=== PATIENT | female | born 1995 | race Caucasian/White ===

== ENCOUNTER 2020-04-29 12:14 | Emergency (ER) | payer MEDICAID ==
[2020-04-29] MEDS ORDERED: Haloperidol Lactate 5 MG/ML SDV IM ONE ×2 (12:33→12:54)
[2020-04-29] MEDS ORDERED: Sodium Chloride 0.9% 10 ML Syringe FLUSH PRN (12:34)
[2020-04-29] MEDS ORDERED: Sodium Chloride 0.9% 2.5 ML Syringe FLUSH PRN (12:34)
[2020-04-29] MEDS ORDERED: Haloperidol Lactate 5 MG/ML SDV ONE ×2 (12:34→12:55)
--- NOTE | 2020-04-29 12:58 | EDM.PDOC ---
ED HPI GENERAL MEDICAL PROBLEM - General Chief Complaint: Abdominal Pain Stated Complaint: ABDOMINAL PAIN;SEIZURES Time Seen by Provider: 04/29/20 12:18 Source of Information: Reports: Patient History Limitations: Reports: Physical Impairment, Uncooperative - History of Present Illness INITIAL COMMENTS - FREE TEXT/NARRATIVE: 24-year-old female with a past medical history of gastroparesis and cannabinoid hyperemesis presenting with abdominal pain and vomiting. Brought to triage with her significant other. The patient is extremely difficult to interview as she is behaving in a rather hysterical fashion, screaming, crying, and rocking in the bed. I was able to determine that she has had a 1 day history of generalized abdominal pain along with innumerable episodes of nonbloody emesis. She denies any preceding fever or other recent illness. Denies any hematemesis or bloody bowel movements. I was not able to obtain much more of a history from the patient. I did speak with the patient's spouse by phone and he conveyed the same history. He states that she has "pain related seizures". And he is concerned that she has had similar episodes today. As far as he knows that she does not carry a legitimate diagnosis of a seizure disorder or epilepsy. He does report that she has a history of cannabinoid hyperemesis. Abdomen Pain Score (Numeric/FACES): 10 - Related Data Allergies Allergy/AdvReac Type Severity Reaction Status Date / Time No Known Allergies Allergy Verified 04/29/20 12:19 Home Meds: Home Meds Gabapentin [Neurontin] 900 mg PO DAILY 04/29/20 [History] Past Medical History Gastrointestinal History: Reports: Other (See Below) Other Gastrointestinal History: gastroparesis, Cannabinoid hyperemesis syndrome Genitourinary History: Reports: Other (See Below) Other Genitourinary History: ovarian cyst removal Neurological History: Reports: Seizure Other Neuro History: abdominal pain induced seizures Social & Family History - Family History Family Medical History: Noncontributory - Caffeine Use Caffeine Use: Reports: None - Recreational Drug Use Recreational Drug Use: No ED ROS GENERAL - Review of Systems Review Of Systems: Unable To Obtain Reason Not Obtained: Limited due to patient being uncooperative and extremely anxious. Constitutional: Denies: Fever Cardiovascular: Denies: Chest Pain GI/Abdominal: Reports: Abdominal Pain, Nausea, Vomiting. Denies: Black Stool, Bloody Stool, Diarrhea, Hematochezia, Melena : Denies: Flank Pain Musculoskeletal: Denies: Back Pain ED EXAM, GI/ABD - Physical Exam Exam: See Below Text/Narrative:: Vital signs reviewed. Nursing notes reviewed. Constitutional: Awake, extremely anxious and agitated, thin appearing woman Head: Normocephalic, atraumatic. Eyes: EOMI, conjunctiva normal, no discharge, no scleral icterus. Ears, Nose, Throat: External ears and nose normal, dry oral mucosa. Cardiovascular: Tachycardic, 2+ radial pulse, capillary refill less than 2 seconds. Pulmonary: Tachypneic normal work of breathing, no accessory muscle use. Abdomen/GI: Soft, nontender, nondistended, no guarding or rigidity, no masses. Musculoskeletal: No deformities. Integumentary: Appropriate color for ethnicity, warm, dry, no pallor or jaundice, no rash. Neurologic: Alert, answering some questions appropriately, no facial droop, moving all extremities well. Rocking back and forth on the bed. Psychiatric: Screening, extremely anxious, agitated. Limited in ability to follow commands and redirect. Poor insight. Impulsive judgment. EKG INTERPRETATION EKG Interpretation Comments: 12-Lead ECG Interpretation Acquired: 12:36 PM Rhythm: Sinus rhythm Rate: 83 bpm Temple: Normal Intervals: Severe QT prolongation Ectopy: None Ischemic Changes: None apparent RV Strain: No obvious RV strain pattern. ST Segments/T-Waves: No notable changes Interpretation: Severe QT prolongation Course - Vital Signs Text/Narrative:: Differential diagnosis includes but is not limited to: Bowel obstruction, bowel perforation, pancreatitis, gastritis, AAA, UTI, pyelonephritis, intra-abdominal infection, mesenteric ischemia, electrolyte disturbance, arrhythmia, seizure, psychosis, psychiatric decompensation, drug or alcohol use, intracranial hemorrhage, seizure, stroke, etc. Upon arrival to the emergency department the patient was extremely agitated and hard to direct. She was screaming loudly and flailing around in the chair. It was very difficult to interview her. IV access was established. Patient was given 2 doses of haloperidol for extreme agitation. After this, we obtained a twelve-lead EKG which showed severe QT prolongation. It would have been impossible to obtain EKG prior to receiving haloperidol because the patient was too restless and agitated and would not be still. There was no prior ECG available for comparison. After noting this finding, the patient required additional sedation so we administered some doses of lorazepam. Labs were sent off. I contacted the patient's significant other to obtain more of a history as he was the one that dropped her off in the emergency department. He states the patient was having severe abdominal pain for hours before coming to the ED. Reports multiple episodes of emesis. He reports that the patient did make statements about committing suicide. He states that the patient discussed walking into traffic to be hit by a car and also discussed stabbing herself with a knife due to severe pain. At this point the patient decided the patient's boyfriend decided that she needed to come to the emergency department. The patient then attempted to stand up on the bed, attempted to get out of bed, and removed her monitoring equipment. Attempted to remove her peripheral IV. She was not redirectable, unable to participate in a rational conversation and could not comprehend her current situation and status. She is unable to make decisions for herself so a legal hold was signed. We obtained CT imaging of the head and abdomen/pelvis, which showed no acute findings. Labs show an elevated lactate, hypokalemia, mild renal insufficiency. Troponin is negative. LFTs are normal. is negative. Urinalysis is bland. Urine drug screen is negative and ethyl alcohol is negative. IV fluids were administered. Given IV magnesium sulfate and IV potassium. We will plan to transfer the patient to [facility] in [place] because we do not have psychiatry available at our hospital. I spoke with Dr. Colon in the emergency department who agrees to accept the transfer. Last Recorded V/S: Last Vital Signs Temp 35.7 C L 04/29/20 12:16 Pulse 89 04/29/20 16:50 Resp 16 04/29/20 16:50 BP 129/80 04/29/20 16:50 Pulse Ox 100 04/29/20 16:50 - Orders/Labs/Meds Orders: Active Orders 24 hr Category Date Time Status Cardiac Monitoring [RC] . DIRECTED Care 04/29/20 12:34 Active EKG 12 Lead [EKG Documentation Completion] [RC] ROUTINE Care 04/29/20 13:12 Active Initiate/Renew Violent-Self Destructive Restraints >/= Care 04/29/20 13:25 Ordered 19yo Q4H Insert Ayala Catheter [Insert Urinary Catheter] [OM.PC] Care 04/29/20 15:00 Ordered Q24H Nrsg Assess: Viol-S.Dest Rest [RC] Q15M Care 04/29/20 13:41 Active Pulse Oximetry [RC] ASDIRECTED Care 04/29/20 12:34 Active Urinary Catheter Assessment [RC] ASDIRECTED Care 04/29/20 16:00 Active Saline Lock Insert [OM.PC] Stat Oth 04/29/20 12:34 Ordered Labs: Laboratory Tests 04/29/20 04/29/20 04/29/20 Range/Units 12:26 12:26 12:26 WBC 8.80 (4.0-11.0) K/uL RBC 5.20 (4.30-5.90) M/uL Hgb 16.0 (12.0-16.0) g/dL Hct 46.2 H (36.0-46.0) % MCV 88.8 (80.0-98.0) fL MCH 30.8 (27.0-32.0) pg MCHC 34.6 (31.0-37.0) g/dL RDW Std Deviation 39.8 (28.0-62.0) fl RDW Coeff of Tye 12 (11.0-15.0) % Plt Count 321 (150-400) K/uL MPV 10.50 (7.40-12.00) fL Neut % (Auto) 61.0 (48.0-80.0) % Lymph % (Auto) 31.0 (16.0-40.0) % [place] % (Auto) 7.0 (0.0-15.0) % Eos % (Auto) 0.5 (0.0-7.0) % Baso % (Auto) 0.5 (0.0-1.5) % Neut # (Auto) 5.4 (1.4-5.7) K/uL Lymph # (Auto) 2.7 H (0.6-2.4) K/uL [place] # (Auto) 0.6 (0.0-0.8) K/uL Eos # (Auto) 0.0 (0.0-0.7) K/uL Baso # (Auto) 0.0 (0.0-0.1) K/uL Nucleated RBC % 0.0 /100WBC Nucleated RBCs # 0 K/uL Lactate (0.20-2.00) mmol/L Sodium 145 (136-145) mmol/L Potassium 3.1 L (3.5-5.1) mmol/L Chloride 106 (98-107) mmol/L Carbon Dioxide 23.9 (21.0-32.0) mmol/L BUN 14 (7.0-18.0) mg/dL Creatinine 1.1 H (0.6-1.0) mg/dL Est Cr Clr Drug Dosing 68.35 mL/min Estimated GFR (MDRD) > 60.0 ml/min Glucose 148 H (74-106) mg/dL Calcium 9.4 (8.5-10.1) mg/dL Total Bilirubin 0.7 (0.2-1.0) mg/dL AST 21 (15-37) IU/L ALT 16 (14-63) IU/L Alkaline Phosphatase 56 (46-116) U/L Troponin I < 0.050 (0.000-0.056) ng/mL Total Protein 8.0 (6.4-8.2) g/dL Albumin 4.6 (3.4-5.0) g/dL Globulin 3.4 (2.6-4.0) g/dL Albumin/Globulin Ratio 1.4 (0.9-1.6) Lipase 52 L (73-393) U/L HCG, Qual NEGATIVE (NEG) Urine Color Urine Appearance Urine pH (5.0-8.0) Ur Specific [place] (1.001-1.035) Urine Protein (NEGATIVE) mg/dL Urine Glucose (UA) (NEGATIVE) mg/dL Urine Ketones (NEGATIVE) mg/dL Urine Occult Blood (NEGATIVE) Urine Nitrite (NEGATIVE) Urine Bilirubin (NEGATIVE) Urine Urobilinogen (<2.0) EU/dL Ur Leukocyte Esterase (NEGATIVE) Urine Opiates Screen (NEGATIVE) Ur Oxycodone Screen (NEGATIVE) Urine Methadone Screen (NEGATIVE) Ur Barbiturates Screen (NEGATIVE) Ur Phencyclidine Scrn (NEGATIVE) Ur Amphetamine Screen (NEGATIVE) U Methamphetamines Scrn (NEGATIVE) U Benzodiazepines Scrn (NEGATIVE) U Cocaine Metab Screen (NEGATIVE) U Marijuana (THC) Screen (NEGATIVE) Ethyl Alcohol mg/dL 04/29/20 04/29/20 04/29/20 Range/Units 12:26 12:50 13:46 WBC (4.0-11.0) K/uL RBC (4.30-5.90) M/uL Hgb (12.0-16.0) g/dL Hct (36.0-46.0) % MCV (80.0-98.0) fL MCH (27.0-32.0) pg MCHC (31.0-37.0) g/dL RDW Std Deviation (28.0-62.0) fl RDW Coeff of Tye (11.0-15.0) % Plt Count (150-400) K/uL MPV (7.40-12.00) fL Neut % (Auto) (48.0-80.0) % Lymph % (Auto) (16.0-40.0) % [place] % (Auto) (0.0-15.0) % Eos % (Auto) (0.0-7.0) % Baso % (Auto) (0.0-1.5) % Neut # (Auto) (1.4-5.7) K/uL Lymph # (Auto) (0.6-2.4) K/uL [place] # (Auto) (0.0-0.8) K/uL Eos # (Auto) (0.0-0.7) K/uL Baso # (Auto) (0.0-0.1) K/uL Nucleated RBC % /100WBC Nucleated RBCs # K/uL Lactate 3.0 H* (0.20-2.00) mmol/L Sodium (136-145) mmol/L Potassium (3.5-5.1) mmol/L Chloride (98-107) mmol/L Carbon Dioxide (21.0-32.0) mmol/L BUN (7.0-18.0) mg/dL Creatinine (0.6-1.0) mg/dL Est Cr Clr Drug Dosing mL/min Estimated GFR (MDRD) ml/min Glucose (74-106) mg/dL Calcium (8.5-10.1) mg/dL Total Bilirubin (0.2-1.0) mg/dL AST (15-37) IU/L ALT (14-63) IU/L Alkaline Phosphatase (46-116) U/L Troponin I (0.000-0.056) ng/mL Total Protein (6.4-8.2) g/dL Albumin (3.4-5.0) g/dL Globulin (2.6-4.0) g/dL Albumin/Globulin Ratio (0.9-1.6) Lipase (73-393) U/L HCG, Qual (NEG) Urine Color Urine Appearance Urine pH (5.0-8.0) Ur Specific [place] (1.001-1.035) Urine Protein (NEGATIVE) mg/dL Urine Glucose (UA) (NEGATIVE) mg/dL Urine Ketones (NEGATIVE) mg/dL Urine Occult Blood (NEGATIVE) Urine Nitrite (NEGATIVE) Urine Bilirubin (NEGATIVE) Urine Urobilinogen (<2.0) EU/dL Ur Leukocyte Esterase (NEGATIVE) Urine Opiates Screen NEGATIVE (NEGATIVE) Ur Oxycodone Screen NEGATIVE (NEGATIVE) Urine Methadone Screen NEGATIVE (NEGATIVE) Ur Barbiturates Screen NEGATIVE (NEGATIVE) Ur Phencyclidine Scrn NEGATIVE (NEGATIVE) Ur Amphetamine Screen NEGATIVE (NEGATIVE) U Methamphetamines Scrn NEGATIVE (NEGATIVE) U Benzodiazepines Scrn NEGATIVE (NEGATIVE) U Cocaine Metab Screen NEGATIVE (NEGATIVE) U Marijuana (THC) Screen NEGATIVE (NEGATIVE) Ethyl Alcohol <3 mg/dL 04/29/20 Range/Units 15:25 WBC (4.0-11.0) K/uL RBC (4.30-5.90) M/uL Hgb (12.0-16.0) g/dL Hct (36.0-46.0) % MCV (80.0-98.0) fL MCH (27.0-32.0) pg MCHC (31.0-37.0) g/dL RDW Std Deviation (28.0-62.0) fl RDW Coeff of Tye (11.0-15.0) % Plt Count (150-400) K/uL MPV (7.40-12.00) fL Neut % (Auto) (48.0-80.0) % Lymph % (Auto) (16.0-40.0) % [place] % (Auto) (0.0-15.0) % Eos % (Auto) (0.0-7.0) % Baso % (Auto) (0.0-1.5) % Neut # (Auto) (1.4-5.7) K/uL Lymph # (Auto) (0.6-2.4) K/uL [place] # (Auto) (0.0-0.8) K/uL Eos # (Auto) (0.0-0.7) K/uL Baso # (Auto) (0.0-0.1) K/uL Nucleated RBC % /100WBC Nucleated RBCs # K/uL Lactate (0.20-2.00) mmol/L Sodium (136-145) mmol/L Potassium (3.5-5.1) mmol/L Chloride (98-107) mmol/L Carbon Dioxide (21.0-32.0) mmol/L BUN (7.0-18.0) mg/dL Creatinine (0.6-1.0) mg/dL Est Cr Clr Drug Dosing mL/min Estimated GFR (MDRD) ml/min Glucose (74-106) mg/dL Calcium (8.5-10.1) mg/dL Total Bilirubin (0.2-1.0) mg/dL AST (15-37) IU/L ALT (14-63) IU/L Alkaline Phosphatase (46-116) U/L Troponin I (0.000-0.056) ng/mL Total Protein (6.4-8.2) g/dL Albumin (3.4-5.0) g/dL Globulin (2.6-4.0) g/dL Albumin/Globulin Ratio (0.9-1.6) Lipase (73-393) U/L HCG, Qual (NEG) Urine Color YELLOW Urine Appearance CLEAR Urine pH 7.0 (5.0-8.0) Ur Specific [place] 1.020 (1.001-1.035) Urine Protein NEGATIVE (NEGATIVE) mg/dL Urine Glucose (UA) NEGATIVE (NEGATIVE) mg/dL Urine Ketones NEGATIVE (NEGATIVE) mg/dL Urine Occult Blood NEGATIVE (NEGATIVE) Urine Nitrite NEGATIVE (NEGATIVE) Urine Bilirubin NEGATIVE (NEGATIVE) Urine Urobilinogen 0.2 (<2.0) EU/dL Ur Leukocyte Esterase NEGATIVE (NEGATIVE) Urine Opiates Screen (NEGATIVE) Ur Oxycodone Screen (NEGATIVE) Urine Methadone Screen (NEGATIVE) Ur Barbiturates Screen (NEGATIVE) Ur Phencyclidine Scrn (NEGATIVE) Ur Amphetamine Screen (NEGATIVE) U Methamphetamines Scrn (NEGATIVE) U Benzodiazepines Scrn (NEGATIVE) U Cocaine Metab Screen (NEGATIVE) U Marijuana (THC) Screen (NEGATIVE) Ethyl Alcohol mg/dL Meds: Medications Discontinued Medications Generic Name Dose Route Start Last Admin Trade Name Che PRN Reason Stop Dose Admin Haloperidol Lactate 5 mg 04/29/20 12:33 04/29/20 12:38 Haldol IM 04/29/20 12:34 5 mg ONETIME ONE Administration Haloperidol Lactate Confirm 04/29/20 12:34 04/29/20 12:38 Haldol Administered 04/29/20 12:35 Not Given Dose 5 mg .ROUTE .STK-MED ONE Haloperidol Lactate 10 mg 04/29/20 12:54 04/29/20 13:03 Haldol IM 04/29/20 12:55 10 mg ONETIME ONE Administration Haloperidol Lactate Confirm 04/29/20 12:55 04/29/20 13:16 Haldol Administered 04/29/20 12:56 Not Given Dose 5 mg .ROUTE .STK-MED ONE Magnesium Sulfate 2 gm/ Premix 50 mls @ 50 mls/hr 04/29/20 13:03 04/29/20 13:16 IV 04/29/20 14:02 50 mls/hr ONETIME ONE Administration Lactated Ringer's 1,000 mls @ 999 mls/hr 04/29/20 13:17 04/29/20 13:18 Ringers, Lactated IV 04/29/20 14:17 999 mls/hr .BOLUS ONE Administration Potassium Chloride 20 meq/ 50 mls @ 25 mls/hr 04/29/20 13:39 04/29/20 14:25 Premix IV 04/29/20 15:38 25 mls/hr ONETIME ONE Administration Iopamidol 100 ml 04/29/20 15:15 04/29/20 15:16 Isovue Multipack-370 (76%) IVPUSH 04/29/20 15:16 100 ml ONETIME STA Administration Lorazepam 2 mg 04/29/20 13:10 04/29/20 13:16 Ativan IVPUSH 04/29/20 13:11 2 mg ONETIME ONE Administration Lorazepam Confirm 04/29/20 13:54 04/29/20 14:22 Ativan Administered 04/29/20 13:55 2 mg Dose Administration 2 mg .ROUTE .STK-MED ONE Lorazepam Confirm 04/29/20 14:02 04/29/20 14:22 Ativan Administered 04/29/20 14:03 4 mg Dose Administration 4 mg .ROUTE .STK-MED ONE Sodium Chloride 10 ml 04/29/20 12:34 04/29/20 13:16 Saline Flush FLUSH 10 ml ASDIRECTED PRN Administration Keep Vein Open Sodium Chloride 2.5 ml 04/29/20 12:34 04/29/20 13:16 Saline Flush FLUSH 2.5 ml ASDIRECTED PRN Administration Keep Vein Open Departure - Departure Time of Disposition: 15:30 Disposition: DC/Tfer to Acute Hospital 02 Condition: Good Clinical Impression: Prolonged QT interval - Discharge Information Referrals: PCP,None [Ordering Only Provider] - Forms: ED Department Discharge Sepsis Event Note (ED) - Evaluation Sepsis Screening Result: No Definite Risk - Focused Exam Vital Signs: Vital Signs Temp Pulse Resp BP Pulse Ox 04/29/20 16:50 89 16 129/80 100 04/29/20 16:35 114 H 18 117/59 L 100 04/29/20 16:20 99 17 134/70 99 04/29/20 16:05 98 16 124/69 99 04/29/20 15:50 108 H 16 127/69 98 04/29/20 15:35 99 16 132/90 99 04/29/20 15:20 108 H 17 128/84 99 04/29/20 15:05 111 H 20 129/84 97 04/29/20 14:50 120 H 19 107/57 L 100 04/29/20 14:35 119 H 20 126/70 99 04/29/20 14:20 101 H 21 H 132/89 99 04/29/20 14:05 101 H 20 126/71 99 04/29/20 13:50 110 H 20 116/96 H 98 04/29/20 13:45 95 22 H 133/89 95 04/29/20 13:35 142 H 22 H 132/92 H 98 04/29/20 13:32 83 17 132/88 100 04/29/20 13:20 126 H 04/29/20 13:00 83 04/29/20 12:46 123 H 18 132/92 H 98 04/29/20 12:33 113 H 17 116/95 H 98 04/29/20 12:16 35.7 C L 107 H 20 131/91 H 98 - My Orders Last 24 Hours: My Active Orders 04/29/20 12:34 Cardiac Monitoring [RC] . DIRECTED Pulse Oximetry [RC] ASDIRECTED Saline Lock Insert [OM.PC] Stat 04/29/20 13:12 EKG 12 Lead [EKG Documentation Completion] [RC] ROUTINE 04/29/20 13:25 Initiate/Renew Violent-Self Destructive Restraints >/=18yo Q4H 04/29/20 13:41 Nrsg Assess: Viol-S.Dest Rest [RC] Q15M 04/29/20 15:00 Insert Ayala Catheter [Insert Urinary Catheter] [OM.PC] Q24H 04/29/20 16:00 Urinary Catheter Assessment [RC] ASDIRECTED - Assessment/Plan Last 24 Hours: My Active Orders 04/29/20 12:34 Cardiac Monitoring [RC] . DIRECTED Pulse Oximetry [RC] ASDIRECTED Saline Lock Insert [OM.PC] Stat 04/29/20 13:12 EKG 12 Lead [EKG Documentation Completion] [RC] ROUTINE 04/29/20 13:25 Initiate/Renew Violent-Self Destructive Restraints >/=18yo Q4H 04/29/20 13:41 Nrsg Assess: Viol-S.Dest Rest [RC] Q15M 04/29/20 15:00 Insert Ayala Catheter [Insert Urinary Catheter] [OM.PC] Q24H 04/29/20 16:00 Urinary Catheter Assessment [RC] ASDIRECTED
[2020-04-29 13:02] LABS: BLOOD UREA NITROGEN,BUN 14 mg/dL (7.0-18.0); CARBON DIOXIDE,CO2 23.9 mmol/L (21.0-32.0); CHLORIDE,CL 106 mmol/L (98-107); GLUCOSE RANDOM 148 mg/dL (74-106); LIPASE 52 U/L (73-393); POTASSIUM,K 3.1 mmol/L (3.5-5.1); SODIUM,NA 145 mmol/L (136-145)
[2020-04-29] MEDS ORDERED: Magnesium Sulfate/Water 2 GM in Premix Bag 1 BAG IV ONE (13:03)
[2020-04-29] MEDS ORDERED: LORazepam 2 MG/ML SDV IVPUSH ONE (13:10)
[2020-04-29] MEDS ORDERED: Lactated Ringers 1,000 ML IV ONE (13:17)
[2020-04-29] MEDS ORDERED: Potassium Chloride Riders 20 MEQ in Premix Bag 1 BAG IV ONE (13:39)
[2020-04-29] MEDS ORDERED: LORazepam 2 MG/ML SDV ONE ×2 (13:54→14:02)
[2020-04-29] MEDS ORDERED: Iopamidol 755 MG/ML 500 ML Multipack Bottle IVPUSH STA (15:15)
--- NOTE | 2020-04-29 15:16 | CT ---
Head CT Technique: Multiple axial sections through the brain were obtained. Intravenous contrast was not utilized. Comparison: No previous intracranial imaging is available. Findings: Ventricles along with basal cisterns and sulci over the convexities are within normal limits for the patient's age. No abnormal parenchymal densities are seen. No evidence of intracranial hemorrhage. No midline shift or mass-effect is appreciated. Visualized mastoid sinuses and visualized paranasal sinuses show nothing acute. No acute calvarial finding is appreciated. Impression: 1. No abnormality is appreciated on noncontrast head CT exam. Diagnostic code #1 This report was dictated in MDT
--- NOTE | 2020-04-29 15:19 | CT ---
CT abdomen and pelvis Technique: Multiple axial sections were obtained from above the dome of the diaphragm inferiorly through the pubic symphysis. Intravenous contrast was utilized. No oral contrast given. Artifact is noted from the patient's arms along the side. Comparison: No prior abdominal imaging is available. Findings: Visualized lung bases are clear. Liver contains no focal parenchymal abnormality. Spleen appears within normal limits. Adrenal glands show no nodule. Pancreas shows no discrete abnormality. Kidneys show symmetric contrast enhancement without hydronephrosis or mass. Gallbladder contains no calcified gallstones. Aorta shows no aneurysm. No retroperitoneal adenopathy or mesenteric abnormalities are seen. No pelvic mass or adenopathy is identified. Mild increased stool within the colon is seen. Appendix is not definitely visualized. Bone window settings were reviewed which shows scoliosis within the spine. No acute osseous finding is appreciated. Impression: 1. Slight increased stool. Other findings believed to be incidental. 2. Nothing acute is identified on CT study of the abdomen and pelvis. Diagnostic code #2 This report was dictated in MDT
== END 2020-04-29 17:00 ==
LOC: MW.ED 12:14
DX: R94.31 Abnormal electrocardiogram [ECG] [EKG] (principal); R56.9 Unspecified convulsions; Z79.899 Other long term (current) drug therapy
CPT/HCPCS: 36415; 51702; 70450; 74177; 80053; 80305; 80307; 81003; 83605; 83690; 84484; 84703; 85025; 93005; 96365; 96366; 96367; 96375; 96376; 99285; J1630; J2060; J3475; J3480; J7120; Q9967; 99284